=== PATIENT | male | born 1975 | race Caucasian/White ===

== ENCOUNTER 2024-02-13 07:59 | Emergency (ER) | payer BC ==
[~2024-02-13] VITALS: Ht 180.3 cm; Wt 86.2 kg
[2024-02-13] MEDS ORDERED: FLUORESCEIN SODIUM OPHTH 1 EA STRIP ONE (08:33)
[2024-02-13] MEDS ORDERED: TETRAcaine 5 ML BOTTLE ONE (08:34)
[2024-02-13] MEDS ORDERED: ERYT3.5O9 RIGHTEYE (09:21)
[2024-02-13 09:23] VITALS: BP 122/66; TEMP 98.2; O2SAT 95
== END 2024-02-13 09:41 | disposition home or self-care (01) ==
LOC: ER 08:09
DX: S05.01XA Injury of conjunctiva and corneal abrasion without foreign body, right eye, initial encounter (principal); X58.XXXA Exposure to other specified factors, initial encounter; Y93.89 Activity, other specified; Y92.89 Other specified places as the place of occurrence of the external cause; Y99.8 Other external cause status